=== PATIENT | male | born 1930 | race Caucasian/White ===

== ENCOUNTER 2020-10-06 12:01 | Emergency (ER) | payer MEDICARE ==
[~2020-10-06] VITALS: Ht 188 cm; Wt 115.7 kg
[~2020-10-06 12:01] MED LIST: FLOMAX0.4 MG; [UNRECOGNIZED DRUG - OTHER]
[2020-10-06] MEDS ORDERED: KETOROLAC TROMETHAMINE 30 MG/ML VIAL IV STA (12:19)
[2020-10-06] MEDS ORDERED: KETOROLAC TROMETHAMINE 30 MG/ML VIAL ONE (12:35)
[2020-10-06] MEDS ORDERED: KETOROLAC TROME10 MG PEG (14:37)
[2020-10-06] MEDS ORDERED: CYCLOBENZAPRINE5 MG PO (14:37)
== END 2020-10-06 14:49 | disposition home or self-care (01) ==
LOC: FSED 12:20
DX: M47.815 Spondylosis without myelopathy or radiculopathy, thoracolumbar region (principal)
CPT/HCPCS: 74176; 80053; 81003; 85025; 99284; J1885

== ENCOUNTER 2020-11-03 17:59 | Emergency (ER) | payer MEDICARE ==
[~2020-11-03] VITALS: Ht 188 cm; Wt 108.9 kg
[~2020-11-03 17:59] MED LIST changes: +CYCLOBENZAPRINE5 MG PO; +KETOROLAC TROME10 MG PEG
[2020-11-03] MEDS ORDERED: CEFDINIR300 MG PO (18:22)
[2020-11-03] MEDS ORDERED: DEXAMETHASONE SOD PHOS 10 MG/1 ML VIAL IM ONE (18:30)
[2020-11-03] MEDS ORDERED: CEFTRIAXONE SOD 1 GM in SODIUM CHLORIDE 0.9% 50ML 50 ML IV ONE (18:30)
[2020-11-03] MEDS ORDERED: CEFTRIAXONE SOD 1 GM VIAL ONE (18:31)
[2020-11-03] MEDS ORDERED: DEXAMETHASONE SOD PHOS INJ 4 MG/ML VIAL ONE (18:31)
[2020-11-03 19:05] VITALS: BP 169/72
== END 2020-11-03 19:05 | disposition home or self-care (01) ==
LOC: FSED 18:18
DX: J01.90 Acute sinusitis, unspecified (principal); H10.9 Unspecified conjunctivitis; E11.42 Type 2 diabetes mellitus with diabetic polyneuropathy; I10 Essential (primary) hypertension
CPT/HCPCS: 99282; J0696; J1100